=== PATIENT | male | born 1960 | race Caucasian/White ===

== ENCOUNTER → 2017-11-17 | Outpatient (CLI) | payer BC | END | disposition home or self-care (01) | LOC: CFH 08:43 | PROVIDERS: ATTEND Physician Assistant | DX: Z13.220 Encounter for screening for lipoid disorders (principal); Z12.11 Encounter for screening for malignant neoplasm of colon; M25.572 Pain in left ankle and joints of left foot; M19.072 Primary osteoarthritis, left ankle and foot; E55.9 Vitamin D deficiency, unspecified; I10 Essential (primary) hypertension; R05 Cough; M79.671 Pain in right foot; F17.201 Nicotine dependence, unspecified, in remission | CPT/HCPCS: 71046 ==

== ENCOUNTER → 2018-06-21 | Outpatient (CLI) | payer BC ==
[~2018-06-21] MED LIST: REGADENOSON 0.4 MG/5 ML SYRINGE ONE
== END | disposition home or self-care (01) ==
LOC: CFH 12:31
PROVIDERS: ATTEND Physician Assistant
DX: R07.9 Chest pain, unspecified (principal); I10 Essential (primary) hypertension; E55.9 Vitamin D deficiency, unspecified; E78.5 Hyperlipidemia, unspecified; E11.9 Type 2 diabetes mellitus without complications; F17.201 Nicotine dependence, unspecified, in remission
CPT/HCPCS: 78452; 93017; A9502; J2785

== ENCOUNTER 2018-11-09 13:25 | Outpatient (CLI) | payer BC | END 2018-11-09 23:59 | disposition home or self-care (01) | LOC: CVU 13:25 | PROVIDERS: ATTEND Internal Medicine Cardiovascular Disease | DX: I08.2 Rheumatic disorders of both aortic and tricuspid valves (principal); I11.9 Hypertensive heart disease without heart failure; E78.5 Hyperlipidemia, unspecified; Z87.891 Personal history of nicotine dependence | CPT/HCPCS: 0399T; 93306 ==